=== PATIENT | female | born 1950 | race Caucasian/White ===

== ENCOUNTER 2019-09-06 12:47 | Inpatient (IN) ==
[2019-09-06] MEDS ORDERED: diPHENhydraMINE IV 50 MG/ML 1 ml VIAL (BENADRYL) IV PRN (14:59)
[2019-09-06] MEDS ORDERED: Ondansetron 4 mg VIAL 2 MG/ML 2 ml VIAL IV PRN (14:59)
[2019-09-06] MEDS ORDERED: Lactated Ringers 1000 ml BAG 1,000 ML IV SCH (15:00)
[2019-09-06 15:37] LABS: ABS Basophils 0.1 10^3/ul (0-0.2); ABS Eosinophils 0.1 10^3/ul (0-0.6); ABS Lymphocytes 1.2 10^3/ul (1.0-4.8); ABS Monocytes 0.6 10^3/ul (0-0.8); Eosinophil % 1.9 %; Hematocrit 37 % (35-47); Hemoglobin 12.7 g/dL (12.0-16.0); Lymphocyte % 15.6 %; Mean Corpuscular HGB Conc 35 g/dL (31-36); Mean Corpuscular Hemoglobin 34 pg (27-31); Mean Corpuscular Volume 99 fL (80-97); Mean Platelet Volume 6.8 fL (7.4-10.4); Nucleated Red Blood Cells % 0.1; Platelet Count 364 10^3/uL (150-450); Red Blood Count 3.72 10^6 /uL (3.70-4.87); Red Cell Distribution Width 12 % (10-15); White Blood Count 7.4 10^3/uL (3.5-10.8)
[2019-09-06] MEDS ORDERED: Vancomycin 1,000 MG in NS 0.9% 250 ml 250 ML IVPB ONE (16:00)
[2019-09-06] MEDS ORDERED: Vancomycin per Pharmacy 1 EA NOTE FOLLOW UP SCH (16:00)
[2019-09-06 16:18] LABS: BUN/Creatinine Ratio 22.4 (8-20); C Reactive Protein 5.08 mg/L (<8.01); Calcium 9.4 mg/dL (8.6-10.3); EGFR African American 106.2 (>60); EGFR Non-African American 87.8 (>60); Potassium 4.1 mmol/L (3.5-5.0)
[2019-09-06] MEDS ORDERED: ZOSYN 3.375 GM x ONE DOSE over 30 miuntes IV (16:30)
[2019-09-06] MEDS: NS 0.9% 1000 ml BAG 1,000 ML IV SCH (21:00)
[2019-09-06] MEDS: Piperacillin/Tazobac ADVAN(*) 3.375 GM in NS 0.9% 100 ml BAG 100 ML IV SCH (21:47)
[2019-09-07] MEDS: Piperacillin/Tazobac ADVAN(*) 3.375 GM in NS 0.9% 100 ml BAG 100 ML IV SCH ×3 (04:36→22:34)
[2019-09-07] MEDS: NS 0.9% 1000 ml BAG 1,000 ML IV SCH (11:22)
[2019-09-08] MEDS: NS 0.9% 1000 ml BAG 1,000 ML IV SCH (00:56)
[2019-09-08] MEDS: Piperacillin/Tazobac ADVAN(*) 3.375 GM in NS 0.9% 100 ml BAG 100 ML IV SCH ×2 (05:10→14:02)
[2019-09-08 12:05] VITALS: BP 143/90
== END 2019-09-08 14:40 | disposition home health service (06) | DRG 603 ==
LOC: SSU 14:25
PROVIDERS: ADMIT Orthopaedic Surgery; ATTEND Orthopaedic Surgery

== ENCOUNTER 2020-05-09 06:58 | Observation (INO) ==
[~2020-05-09 06:58] MED LIST: Buffered Lidocaine 1% SYRIN 1 ml INTRADERM ONE; Lactated Ringers 1000 ml BAG 1,000 ML IV SCH
[2020-05-09] MEDS ORDERED: ceFAZolin 2 GM PREMIX 2 GM/50 ML BAG ONE (07:09)
[2020-05-09] MEDS ORDERED: Lidocaine 1% MPF 5 ML VIAL ONE (07:38)
[2020-05-09] MEDS ORDERED: Midazolam 2 mg/2 ml VIAL 1 mg/ml 2 ml VIAL (2 mg) ONE (07:39)
[2020-05-09] MEDS ORDERED: Bupivacaine 0.5% SDV PF 30ML VIAL ONE (07:39)
[2020-05-09] MEDS ORDERED: Dexamethasone IV 4 MG/ML VIAL 1 ml VIAL ONE (07:39)
[2020-05-09 08:14] LABS: INR 1.08 (0.82-1.09)
[2020-05-09] MEDS ORDERED: Ropivacaine 5 MG/ML 20 ML VIAL 0.5% (100 MG) ONE (08:46)
[2020-05-09] MEDS ORDERED: fentaNYL 100 mcg/2 ml 50 MCG/ML VIAL ONE (09:17)
[2020-05-09] MEDS ORDERED: Propofol 10 MG/ML 20 ML BTL ONE ×2 (10:01→10:31)
[2020-05-09] MEDS ORDERED: Phenylephrine IV 10 MG/ML 1 ml VIAL ONE (10:01)
[2020-05-09] MEDS ORDERED: diPHENhydraMINE IV 50 MG/ML 1 ml VIAL (BENADRYL) IV PRN (10:22)
[2020-05-09] MEDS ORDERED: Morphine 2 MG/ML SYRINGE IV PRN (10:22)
[2020-05-09] MEDS ORDERED: Magnesium Hydroxide LIQ 30 ML UDC PO PRN (10:22)
[2020-05-09] MEDS ORDERED: Ondansetron 4 mg VIAL 2 MG/ML 2 ml VIAL IV PRN (10:22)
[2020-05-09] MEDS ORDERED: diPHENhydraMINE 25 mg TAB PO PRN (10:22)
[2020-05-09] MEDS ORDERED: Lactulose 30 ml UDC PO PRN (10:22)
[2020-05-09] MEDS ORDERED: Ondansetron ODT 4 mg TAB 4 MG TAB PO PRN (10:22)
[2020-05-09] MEDS ORDERED: Ondansetron 4 mg VIAL 2 MG/ML 2 ml VIAL ONE (10:32)
[2020-05-09] MEDS: Lactated Ringers 1000 ml BAG 1,000 ML IV SCH ×2 (13:01→21:57)
[2020-05-09] MEDS: oxyCODONE/Acetamin 5/325 mg TAB PO PRN ×2 (15:12→21:55)
[2020-05-09] MEDS: ceFAZolin 1 GM ADVAN 1 GM in NS 0.9% 50 ML 50 ML IVPB SCH (16:41)
[2020-05-09] MEDS: Magnesium Hydroxide LIQ 30 ML UDC PO SCH (20:54)
[2020-05-10] MEDS: ceFAZolin 1 GM ADVAN 1 GM in NS 0.9% 50 ML 50 ML IVPB SCH ×2 (00:21→08:19)
[2020-05-10 05:11] LABS: Hematocrit 31 % (35-47); Hemoglobin 10.9 g/dL (12.0-16.0); Mean Platelet Volume 6.8 fL (7.4-10.4); Platelet Count 299 10^3/uL (150-450)
[2020-05-10 05:27] LABS: BUN/Creatinine Ratio 25.4 (8-20); Calcium 8.4 mg/dL (8.6-10.3); EGFR African American 105.9 (>60); EGFR Non-African American 87.5 (>60)
[2020-05-10] MEDS: Magnesium Hydroxide LIQ 30 ML UDC PO SCH (08:21)
[2020-05-10] MEDS ORDERED: Vitamin THERAPEUTIC TAB PO SCH (09:00)
[2020-05-10 11:14] VITALS: BP 132/70
== END 2020-05-10 13:30 | disposition home or self-care (01) ==
LOC: OR 06:58 → SSU 06:58
PROVIDERS: ADMIT Orthopaedic Surgery Adult Reconstructive Orthopaedic Surgery; ATTEND Orthopaedic Surgery Adult Reconstructive Orthopaedic Surgery